=== PATIENT | male | born 1990 | race African-American/Black ===

== ENCOUNTER 2019-11-09 09:02 | Emergency (ER) | payer MEDICAID, OTHER ==
[~2019-11-09] VITALS: Ht 175.3 cm; Wt 134.0 kg
[2019-11-09 09:56] LABS: MEAN CORPUSCULAR HEMOGLOBIN 29.2 pg (27.5-34.5); MEAN CORPUSCULAR HGB CONC 32.4 g/dL (33.2-36.2); PLATELET COUNT 274 x10^3/uL (130-400); RED BLOOD COUNT 4.97 x10^6/uL (4.38-5.82); RED CELL DISTRIBUTION WIDTH 13.4 % (9.4-14.8)
[2019-11-09 10:05] LABS: ALANINE AMINOTRANSFERASE 35 U/L (12-78); ALBUMIN 3.7 g/dL (3.4-5.0); ANION GAP 3 mmol/L (5-15); CALCIUM 8.9 mg/dL (8.5-10.1); CHLORIDE 114 mmol/L (98-107); CREATININE 1.05 mg/dL (0.7-1.3)
[2019-11-09 10:09] LABS: ALKALINE PHOSPHATASE 82 U/L (45-117); BILIRUBIN,TOTAL 0.4 mg/dL (0.2-1.0); TOTAL PROTEIN 7.3 g/dL (6.4-8.2); TROPONIN I < 0.015 ng/mL (0.000-0.045)
[2019-11-09 10:16] VITALS: BP 133/86
[2019-11-09 10:17] LABS: BASOPHILS # (AUTO) 0.01 x10^3/uL (0-0.1); BASOPHILS % (AUTO) 0 % (0-1); EOSINOPHILS # (AUTO) 0.06 x10^3/uL (0-0.4); EOSINOPHILS % (AUTO) 1 % (1-7); LYMPHOCYTES # (AUTO) 1.31 x10^3/uL (1-3.4); LYMPHOCYTES % (AUTO) 18 % (22-44); MD SCAN; MONOCYTES % (AUTO) 11 % (2-9); NEUTROPHILS # (AUTO) 5.07 x10^3/uL (1.8-6.8); NEUTROPHILS % (AUTO) 70 % (42-75)
== END 2019-11-09 10:43 | disposition home or self-care (01) ==
LOC: ED 10:30
DX: R07.89 Other chest pain (principal); Z20.828 Contact with and (suspected) exposure to other viral communicable diseases; E66.9 Obesity, unspecified
CPT/HCPCS: 36415; 71045; 80053; 84484; 85025; 87635; 93005; 99285

== ENCOUNTER 2020-06-30 14:36 | Emergency (ER) | payer MEDICAID ==
[~2020-06-30] VITALS: Ht 177.8 cm; Wt 122.7 kg
--- NOTE | 2020-06-30 15:06 | NUR ---
Pt found in room changed and on bedside monitor. assessment clinician completed with pt reporting dental pain, no chest pain or SOB at all, and holding his neck stiff for weeks due to pain that has since started making his LUE sore the last few days. Fever off and on reported and easily cared for with APAP/Ibuprofen. Pt states he has been swish/spitting with salt water oral rinse the last week attempting to avoid the dentist secondary to fear of the dentist.
[2020-06-30 15:09] VITALS: BP 150/78
[2020-06-30] MEDS ORDERED: ACET325C6 PO (15:11)
[2020-06-30] MEDS ORDERED: IBUP-1902 PO (15:11)
[2020-06-30] MEDS ORDERED: HYDROcodone/APAP 5/325 TABLET ONE (15:27)
[2020-06-30] MEDS ORDERED: HYDROcodone/APAP 5/325 TABLET PO ONE (15:30)
--- NOTE | 2020-06-30 15:31 | NUR ---
Pt medicated for pain at this time as ordered with pain increased from initial admitting supervisor of 11/13 to 02/13.
== END 2020-06-30 15:43 | disposition home or self-care (01) ==
LOC: ED 15:30
DX: S16.1XXA Strain of muscle, fascia and tendon at neck level, initial encounter (principal); K08.89 Other specified disorders of teeth and supporting structures; F17.210 Nicotine dependence, cigarettes, uncomplicated; R94.31 Abnormal electrocardiogram [ECG] [EKG]; X58.XXXA Exposure to other specified factors, initial encounter; Y93.89 Activity, other specified; Y92.89 Other specified places as the place of occurrence of the external cause; Y99.8 Other external cause status
CPT/HCPCS: 93005; 99283; 99406

== ENCOUNTER 2020-07-08 15:23 | Emergency (ER) | payer MEDICAID ==
[~2020-07-08] VITALS: Ht 175.3 cm; Wt 124.3 kg
[~2020-07-08 15:23] MED LIST: ACET325C6 PO; IBUP-1902 PO
--- NOTE | 2020-07-08 17:01 | NUR ---
FAMILY SERVICE CASEWORKER NOTE: PT TO ROOM 23 FROM [facility]
--- NOTE | 2020-07-08 17:02 | NUR ---
PATIENT WALKED BACK FROM [facility] WITH CHIEF C/O COUGH AND FEVER X3 DAYS. PATIENT DENIES SOB, DENIES N/V/D. NADN, ACCOMPANIED BY DAUGHTER.
[2020-07-08 17:41] VITALS: BP 131/81
--- NOTE | 2020-07-08 17:49 | NUR ---
PATIENT SITTING IN CHAIR IN ROOM, NADN, WAITING FOR FLU RESULTS.
[2020-07-08 17:55] LABS: RAPID INFLUENZA A Negative (Negative); RAPID INFLUENZA B Negative (Negative)
--- NOTE | 2020-07-08 18:14 | NUR ---
Patient given discharge instructions and they have confirmed that they understand the instructions, all questions answered. Patient educated about need to quarantine until COVID results received. Patient stable and ambulatory with steady gait from ED to private vehicle.
== END 2020-07-08 18:15 | disposition home or self-care (01) ==
LOC: ED 18:09
DX: J20.8 Acute bronchitis due to other specified organisms (principal); Z20.822 Contact with and (suspected) exposure to COVID-19; J06.9 Acute upper respiratory infection, unspecified
CPT/HCPCS: 71045; 87400; 99284; U0003

== ENCOUNTER 2020-09-12 13:30 | Emergency (ER) | payer MEDICAID ==
[~2020-09-12] VITALS: Ht 177.8 cm; Wt 112.9 kg
[2020-09-12 13:31] VITALS: BP 129/83
[2020-09-12] MEDS ORDERED: HYDROcodone/APAP 5/325 TABLET ONE (13:47)
[2020-09-12] MEDS ORDERED: HYDROcodone/APAP 5/325 TABLET PO ONE (14:00)
--- NOTE | 2020-09-12 14:11 | NUR ---
Patient given discharge instructions and they have confirmed that they understand the instructions. Patient ambulatory with steady gait. Pt to take a Lyft home.
== END 2020-09-12 14:12 | disposition home or self-care (01) ==
LOC: ED 14:09
DX: K02.9 Dental caries, unspecified (principal); K08.89 Other specified disorders of teeth and supporting structures; E66.9 Obesity, unspecified
CPT/HCPCS: 99283

== ENCOUNTER 2020-11-23 11:31 | Emergency (ER) | payer MEDICAID ==
[~2020-11-23] VITALS: Ht 177.8 cm; Wt 119.0 kg
[2020-11-23 11:42] VITALS: BP 124/79
--- NOTE | 2020-11-23 12:24 | NUR ---
Patient given discharge instructions and RX, they have confirmed that they understand the instructions. Patient ambulatory with steady gait.
== END 2020-11-23 12:26 | disposition home or self-care (01) ==
LOC: ED 11:50
DX: K02.9 Dental caries, unspecified (principal)
CPT/HCPCS: 99283

== ENCOUNTER 2020-12-04 12:45 | Emergency (ER) | payer MEDICAID ==
[~2020-12-04] VITALS: Ht 175.3 cm; Wt 118.6 kg
[2020-12-04 13:27] VITALS: BP 117/76
== END 2020-12-04 14:07 | disposition home or self-care (01) ==
LOC: ED 13:37
DX: K02.9 Dental caries, unspecified (principal); K08.89 Other specified disorders of teeth and supporting structures; E66.9 Obesity, unspecified; Z68.38 Body mass index [BMI] 38.0-38.9, adult; Z88.1 Allergy status to other antibiotic agents
CPT/HCPCS: 99281